=== PATIENT | male | born 1950 | race Hispanic/Latino ===

== ENCOUNTER 2020-09-28 09:25 | Day surgery (SDC) | payer MEDICARE ==
[2020-09-22 12:03] LABS: BASOPHILS % (AUTO) 0.7 % (0.0-5.0); EOSINOPHILS % (AUTO) 1.8 % (0.0-8.0); HEMATOCRIT 45.3 % (42-54); LYMPHOCYTES % (AUTO) 14.8 % (21.0-51.0); MEAN CORPUSCULAR HEMOGLOBIN 31.5 pg (27.0-33.0); MEAN CORPUSCULAR HGB CONC 32.5 g/dL (32.0-36.0); MONOCYTES % (AUTO) 7.9 % (3.0-13.0); NEUTROPHILS % (AUTO) 74.4 % (40.0-77.0); PLATELET COUNT (AUTO) 312 K/uL (130-400); RED BLOOD CELL COUNT(AUTO) 4.67 MIL/uL (4.50-6.20); RED CELL DISTRIBUTION WIDTH 12.3 % (11.0-15.5)
[2020-09-22 12:12] LABS: APPEARANCE,URINE CLOUDY (CLEAR); BILIRUBIN,URINE SMALL (NEGATIVE); COLOR,URINE BROWN (YELLOW); GLUCOSE, URINE (UA) NEGATIVE (NEGATIVE); KETONES,URINE 5 mg/dL (NEGATIVE); LEUKOCYTE ESTERASE ,URINE TRACE (NEGATIVE); NITRATE,URINE POSITIVE (NEGATIVE); OCCULT BLOOD,URINE LARGE (NEGATIVE); PROTEIN,URINE 100 mg/dL (NEGATIVE)
[2020-09-22 12:13] LABS: CREATININE 0.9 mg/dL (0.5-1.5); POTASSIUM 4.7 mmol/L (3.5-5.1)
[2020-09-22 12:18] LABS: RBC,URINE TNTC /HPF (0-1)
[2020-09-22 12:20] LABS: BACTERIA,URINE Many /HPF (None Seen); SQUAMOUS EPITHELIAL CELL,UR None Seen /HPF (0-2)
[2020-09-22 13:23] LABS: INR 1.14 (0.85-1.15); PARTIAL THROMBOPLASTIN TIME 24.8 SEC (26.3-35.5); PROTHROMBIN TIME 11.8 SEC (9.6-11.6)
[2020-09-27 10:03] VITALS: BP 133/59
[2020-09-28] VITALS (17 sets, daily range): BP systolic 130–160; BP diastolic 50–84
[~2020-09-28 09:25] MED LIST: AEC81 PO; LEVO750T46 PO; LISI-809 PO; SIMV-43 PO
[2020-09-28] MEDS ORDERED: LACTATED RINGERS 1000ML 1,000 ML IV ONE (10:27)
[2020-09-28] MEDS: CEFTRIAXONE SODIUM 1 GM IVP SCH ×2 (11:01→13:15)
[2020-09-28] MEDS ORDERED: GENTAMICIN SULFATE 240 MG in SODIUM CHLORIDE 0.9% 100 ML IV SCH (11:15)
[2020-09-28] MEDS ORDERED: FENTANYL CITRATE PF 50 MCG/1 ML 2ML VIAL ONE (13:07)
[2020-09-28] MEDS ORDERED: LIDOCAINE PF 2% 5ML ABBOJECT ONE (13:07)
[2020-09-28] MEDS ORDERED: PROPOFOL 10 MG/ML 20ML VIAL IV ONE (13:07)
[2020-09-28] MEDS ORDERED: ROCURONIUM 10MG/1ML SYR 10 MG/ML ML ONE (13:21)
[2020-09-28] MEDS ORDERED: EPHEDRINE SULFATE 50 MG/ML AMPULE ONE (14:19)
[2020-09-28] MEDS ORDERED: NEOSTIGMINE 5MG/5ML SYR IV ONE (14:36)
[2020-09-28] MEDS ORDERED: MEPERIDINE-PF 25 MG/ML SYG ONE (15:02)
== END 2020-09-28 17:20 | disposition home or self-care (01) ==
LOC: DAH 09:25
PROVIDERS: ATTEND Urology
DX: N40.1 Benign prostatic hyperplasia with lower urinary tract symptoms (principal); R33.9 Retention of urine, unspecified; I10 Essential (primary) hypertension; Z95.1 Presence of aortocoronary bypass graft; Z79.899 Other long term (current) drug therapy; Z79.01 Long term (current) use of anticoagulants; Z20.828 Contact with and (suspected) exposure to other viral communicable diseases
CPT/HCPCS: 36415; 52648; 71045; 80048; 81001; 85025; 85610; 85730; 87077; 87088; 87186; 93005; A4215; A4221; A4222; A4223; A4354; A4358; A4600; A4663; A6260; C9803; J0696; J1580; J2001; J2175; J2704; J2710; J3010; J3490; J7030; J7120; U0003